=== PATIENT | female | born 1950 | race Caucasian/White ===

== ENCOUNTER 2025-02-14 17:35 | Inpatient (IN) | payer MEDICARE, OTHER ==
[2025-02-14] MEDS ORDERED: Sodium Chloride 0.9% 10 ML Syringe FLUSH PRN (17:57)
[2025-02-14 18:10] LABS: BASOPHILS ABSOLUTE AUTO 0.01 10^3/uL (0.00-0.10); BASOPHILS PERCENT AUTO 0.5 % (0.0-1.0); EOSINOPHILS ABSOLUTE AUTO 0.01 10^3/uL (0.10-0.30); EOSINOPHILS PERCENT AUTO 0.5 % (1.0-3.0); IMMATURE GRAN ABSOLUTE AUTO 0.01 10^3/uL (0.00-0.04); IMMATURE GRAN PERCENT AUTO 0.5 % (0.0-0.4); LYMPHOCYTES ABSOLUTE AUTO 1.18 10^3/uL (1.00-4.00); LYMPHOCYTES PERCENT AUTO 59.0 % (20.0-40.0); MEAN PLATELET VOLUME 8.4 fL (7.4-10.4); MONOCYTES ABSOLUTE AUTO 0.16 10^3/uL (0.10-0.80); MONOCYTES PERCENT AUTO 8.0 % (2.0-8.0); NEUTROPHILS ABSOLUTE AUTO 0.63 10^3/uL (2.50-7.00); NEUTROPHILS PERCENT AUTO 31.5 % (50.0-70.0); PLATELET COUNT,PLT 427 10^3/uL (150-400); RED BLOOD CELL COUNT 3.11 10^6/uL (3.80-5.50); RED CELL DISTRIBUTION WIDTH 13.3 % (11.5-14.5); WHITE BLOOD CELL COUNT,WBC 2.00 10^3/uL (5.00-10.00)
[2025-02-14] MEDS: Lactated Ringers 1,000 ML IV ONE (18:11)
[2025-02-14 18:33] LABS: ALANINE AMINOTRANSFERASE,ALT 24.0 U/L (14-63); ASPARTATE AMNIOTRANSFERASE,AST 17.0 U/L (15-37); BILIRUBIN TOTAL 0.4 mg/dL (0.2-1.0); BLOOD UREA NITROGEN,BUN 6.0 mg/dL (7-18); CARBON DIOXIDE,CO2 28.4 mmol/L (21.0-32.0); CHLORIDE,CL 99.0 mmol/L (98-107); CREATININE 0.57 mg/dL (0.51-1.17); EST CRCL DRUG DOSING (CG) 78.49 mL/min; ESTIMATED GFR 95.0 mL/min (>=60); GLUCOSE RANDOM 185.0 mg/dL (70-140); POTASSIUM,K 4.1 mmol/L (3.5-5.1); PROTEIN TOTAL,TP 6.0 g/dL (6.4-8.2); SODIUM,NA 135.0 mmol/L (136-145)
[2025-02-14 19:37] LABS: APPEARANCE,URINE CLEAR (CLEAR); GLUCOSE,URINE NEGATIVE (NEGATIVE); OCCULT BLOOD,URINE NEGATIVE (NEGATIVE)
[2025-02-14 19:54] LABS: EPITHELIAL CELLS,URINE FEW /LPF
[2025-02-14] MEDS ORDERED: Ondansetron 4 MG/2 ML SDV IV PRN (20:41)
[2025-02-14] MEDS ORDERED: Non-Formulary Medication 1 Each (Insulin Aspart 100 UNIT/ML Insuln.Pen) SQ PRN (20:45)
[2025-02-14] MEDS ORDERED: 50% Dextrose in Water 50 ML Syringe IVPUSH PRN (20:45)
[2025-02-14] MEDS ORDERED: Glucose Gel 15 GM in 37.5 GM Tube PO PRN (20:45)
[2025-02-14] MEDS ORDERED: CAPECITABINE 150 MG PO SCH ×2 (21:00→21:15)
[2025-02-14] MEDS ORDERED: CAPECITABINE 500 MG PO SCH ×2 (21:00→21:15)
[2025-02-14] MEDS: Lactated Ringers 1,000 ML IV SCH (21:30)
[2025-02-14] MEDS: Magnesium Sulfate 2 GM/50 mL 2 GM in Premix Bag 1 BAG IV ONE (21:31)
[2025-02-14] MEDS: CAPECITABINE 500 MG PO SCH (21:31)
[2025-02-14] MEDS: CAPECITABINE 150 MG PO SCH (21:31)
[2025-02-15 07:25] LABS: BASOPHILS ABSOLUTE AUTO 0.00 10^3/uL (0.00-0.10); BASOPHILS PERCENT AUTO 0.0 % (0.0-1.0); EOSINOPHILS ABSOLUTE AUTO 0.02 10^3/uL (0.10-0.30); EOSINOPHILS PERCENT AUTO 0.8 % (1.0-3.0); IMMATURE GRAN ABSOLUTE AUTO 0.00 10^3/uL (0.00-0.04); IMMATURE GRAN PERCENT AUTO 0.0 % (0.0-0.4); LYMPHOCYTES ABSOLUTE AUTO 1.18 10^3/uL (1.00-4.00); LYMPHOCYTES PERCENT AUTO 49.0 % (20.0-40.0); MEAN PLATELET VOLUME 8.2 fL (7.4-10.4); MONOCYTES ABSOLUTE AUTO 0.29 10^3/uL (0.10-0.80); MONOCYTES PERCENT AUTO 12.0 % (2.0-8.0); NEUTROPHILS ABSOLUTE AUTO 0.92 10^3/uL (2.50-7.00); NEUTROPHILS PERCENT AUTO 38.2 % (50.0-70.0); PLATELET COUNT,PLT 370 10^3/uL (150-400); RED BLOOD CELL COUNT 3.11 10^6/uL (3.80-5.50); RED CELL DISTRIBUTION WIDTH 13.6 % (11.5-14.5); WHITE BLOOD CELL COUNT,WBC 2.41 10^3/uL (5.00-10.00)
[2025-02-15 07:43] LABS: BLOOD UREA NITROGEN,BUN 5.0 mg/dL (7-18); CARBON DIOXIDE,CO2 30.4 mmol/L (21.0-32.0); CHLORIDE,CL 106.0 mmol/L (98-107); CREATININE 0.56 mg/dL (0.51-1.17); EST CRCL DRUG DOSING (CG) 79.48 mL/min; GLUCOSE RANDOM 116.0 mg/dL (70-140); POTASSIUM,K 4.9 mmol/L (3.5-5.1); SODIUM,NA 141.0 mmol/L (136-145)
[2025-02-15 07:44] LABS: ESTIMATED GFR 95.0 mL/min (>=60)
[2025-02-15] MEDS: Insulin Lispro 100 Unit/ML 3 ML KwikPen SUBCUT SCH (08:02)
[2025-02-15] MEDS: Insulin Glargine,Human Rec. Analog 100 Units/ML 3 ML Pen SUBCUT SCH (08:05)
[2025-02-15] MEDS: [UNRECOGNIZED DRUG - OTHER] SUBCUT ONE (15:05)
== END 2025-02-15 15:05 | disposition home or self-care (01) | DRG 809 ==
LOC: KA.ED 17:35 → KA.MS 19:00
PROVIDERS: ADMIT Family Medicine; ATTEND Family Medicine
DX: D70.1 Agranulocytosis secondary to cancer chemotherapy (principal); C25.0 Malignant neoplasm of head of pancreas; I10 Essential (primary) hypertension; E11.9 Type 2 diabetes mellitus without complications; E86.0 Dehydration; T45.1X5A Adverse effect of antineoplastic and immunosuppressive drugs, initial encounter; Y92.89 Other specified places as the place of occurrence of the external cause; R19.7 Diarrhea, unspecified; D70.2 Other drug-induced agranulocytosis; Z79.899 Other long term (current) drug therapy; Z79.4 Long term (current) use of insulin
CPT/HCPCS: 36415; 71045; 80048; 80053; 81001; 82947; 83605; 83735; 85025; 87045; 87046; 87324; 87328; 87329; 87449; 99223-GT; 99239-GT; 99284; 99285; A9270-GY; J0692; J1642; J1650; J1815-GY; J3475; J7120; Q3014

== ENCOUNTER 2025-04-10 09:05 | Inpatient (IN) | payer MEDICARE, OTHER ==
[2025-04-10 09:24] LABS: BASOPHILS ABSOLUTE AUTO 0.01 10^3/uL (0.00-0.10); BASOPHILS PERCENT AUTO 0.7 % (0.0-1.0); EOSINOPHILS ABSOLUTE AUTO 0.19 10^3/uL (0.10-0.30); EOSINOPHILS PERCENT AUTO 12.6 % (1.0-3.0); IMMATURE GRAN ABSOLUTE AUTO 0.00 10^3/uL (0.00-0.04); IMMATURE GRAN PERCENT AUTO 0.0 % (0.0-0.4); LYMPHOCYTES ABSOLUTE AUTO 0.47 10^3/uL (1.00-4.00); LYMPHOCYTES PERCENT AUTO 31.1 % (20.0-40.0); MEAN PLATELET VOLUME 9.6 fL (7.4-10.4); MONOCYTES ABSOLUTE AUTO 0.06 10^3/uL (0.10-0.80); MONOCYTES PERCENT AUTO 4.0 % (2.0-8.0); NEUTROPHILS ABSOLUTE AUTO 0.78 10^3/uL (2.50-7.00); NEUTROPHILS PERCENT AUTO 51.6 % (50.0-70.0); PLATELET COUNT,PLT 266 10^3/uL (150-400); RED BLOOD CELL COUNT 2.43 10^6/uL (3.80-5.50); RED CELL DISTRIBUTION WIDTH 23.1 % (11.5-14.5)
[2025-04-10 09:29] LABS: WHITE BLOOD CELL COUNT,WBC 1.51 10^3/uL (5.00-10.00)
[2025-04-10 09:33] LABS: ALANINE AMINOTRANSFERASE,ALT 29.0 U/L (14-63); ASPARTATE AMNIOTRANSFERASE,AST 55.0 U/L (15-37); BILIRUBIN TOTAL 0.9 mg/dL (0.2-1.0); BLOOD UREA NITROGEN,BUN 19.0 mg/dL (7-18); CARBON DIOXIDE,CO2 25.2 mmol/L (21.0-32.0); CHLORIDE,CL 100.0 mmol/L (98-107); CREATININE 0.62 mg/dL (0.51-1.17); EST CRCL DRUG DOSING (CG) 69.61 mL/min; GLUCOSE RANDOM 217.0 mg/dL (70-140); POTASSIUM,K 4.7 mmol/L (3.5-5.1); PROTEIN TOTAL,TP 4.7 g/dL (6.4-8.2); SODIUM,NA 132.0 mmol/L (136-145)
[2025-04-10 09:34] LABS: ESTIMATED GFR 93.0 mL/min (>=60)
[2025-04-10] MEDS: Lactated Ringers 1,000 ML IV SCH (10:42)
[2025-04-10] MEDS ORDERED: 50% Dextrose in Water 50 ML Syringe IVPUSH PRN (12:13)
[2025-04-10] MEDS ORDERED: Glucose Gel 15 GM in 37.5 GM Tube PO PRN (12:13)
[2025-04-10] MEDS ORDERED: Ondansetron 4 MG/2 ML SDV IV PRN (12:13)
[2025-04-10] MEDS: [UNRECOGNIZED DRUG - OTHER] PO SCH ×2 (14:57→17:47)
[2025-04-10] MEDS: Insulin Lispro 100 Unit/ML 3 ML KwikPen SUBCUT SCH (17:47)
[2025-04-10] MEDS ORDERED: [UNRECOGNIZED DRUG - OTHER] PO SCH (18:00)
[2025-04-11 03:26] LABS: LACTIC ACID 0.8 mmol/L (0.4-2.0)
[2025-04-11 07:38] LABS: MEAN PLATELET VOLUME 9.7 fL (7.4-10.4); PLATELET COUNT,PLT 202 10^3/uL (150-400); RED BLOOD CELL COUNT 2.18 10^6/uL (3.80-5.50); RED CELL DISTRIBUTION WIDTH 23.2 % (11.5-14.5)
[2025-04-11 07:46] LABS: WHITE BLOOD CELL COUNT,WBC 1.06 10^3/uL (5.00-10.00)
[2025-04-11 07:49] LABS: LYMPHOCYTES PERCENT MAN 38 % (20-40); SEG NEUTROPHILS PERCENT MAN 61 % (50-70)
[2025-04-11 07:50] LABS: BASOPHILS PERCENT MAN 0 % (0-1); EOSINOPHILS PERCENT MAN 0 % (1-3); MONOCYTES PERCENT MAN 1 % (2-8)
[2025-04-11 07:56] LABS: ALANINE AMINOTRANSFERASE,ALT 35.0 U/L (14-63); ASPARTATE AMNIOTRANSFERASE,AST 43.0 U/L (15-37); BILIRUBIN TOTAL 0.4 mg/dL (0.2-1.0); BLOOD UREA NITROGEN,BUN 20.0 mg/dL (7-18); CARBON DIOXIDE,CO2 23.6 mmol/L (21.0-32.0); CHLORIDE,CL 105.0 mmol/L (98-107); CREATININE 0.67 mg/dL (0.51-1.17); EST CRCL DRUG DOSING (CG) 64.42 mL/min; GLUCOSE RANDOM 216.0 mg/dL (70-140); POTASSIUM,K 5.0 mmol/L (3.5-5.1); PROTEIN TOTAL,TP 4.2 g/dL (6.4-8.2); SODIUM,NA 135.0 mmol/L (136-145)
[2025-04-11] MEDS: Insulin Glargine,Human Rec. Analog 100 Units/ML 3 ML Pen SUBCUT SCH (07:58)
[2025-04-11 08:03] LABS: ESTIMATED GFR 91.0 mL/min (>=60)
[2025-04-11] MEDS: Psyllium Husk Powder Sugar Free 5.85 GM Packet PO SCH (12:22)
[2025-04-11 13:36] LABS: MEAN PLATELET VOLUME 9.4 fL (7.4-10.4); PLATELET COUNT,PLT 232 10^3/uL (150-400); RED BLOOD CELL COUNT 2.44 10^6/uL (3.80-5.50); RED CELL DISTRIBUTION WIDTH 23.0 % (11.5-14.5)
[2025-04-11 14:07] LABS: WHITE BLOOD CELL COUNT,WBC 1.59 10^3/uL (5.00-10.00)
[2025-04-11 14:09] LABS: BASOPHILS PERCENT MAN 0 % (0-1); EOSINOPHILS PERCENT MAN 0 % (1-3); LYMPHOCYTES PERCENT MAN 40 % (20-40); MONOCYTES PERCENT MAN 1 % (2-8); SEG NEUTROPHILS PERCENT MAN 59 % (50-70)
[2025-04-11 14:10] LABS: PLATELET COUNT ESTIMATE ADEQUATE
[2025-04-12 07:31] LABS: ALANINE AMINOTRANSFERASE,ALT 18.0 U/L (14-63); ASPARTATE AMNIOTRANSFERASE,AST 23.0 U/L (15-37); BILIRUBIN TOTAL 0.2 mg/dL (0.2-1.0); BLOOD UREA NITROGEN,BUN 19.0 mg/dL (7-18); CARBON DIOXIDE,CO2 21.0 mmol/L (21.0-32.0); CHLORIDE,CL 108.0 mmol/L (98-107); CREATININE 0.6 mg/dL (0.51-1.17); EST CRCL DRUG DOSING (CG) 74.31 mL/min; GLUCOSE RANDOM 186.0 mg/dL (70-140); POTASSIUM,K 4.2 mmol/L (3.5-5.1); PROTEIN TOTAL,TP 3.9 g/dL (6.4-8.2); SODIUM,NA 135.0 mmol/L (136-145)
[2025-04-12 07:32] LABS: ESTIMATED GFR 94.0 mL/min (>=60)
[2025-04-12 08:02] LABS: MEAN PLATELET VOLUME 9.7 fL (7.4-10.4); PLATELET COUNT,PLT 190 10^3/uL (150-400); RED BLOOD CELL COUNT 2.07 10^6/uL (3.80-5.50); RED CELL DISTRIBUTION WIDTH 23.2 % (11.5-14.5); WHITE BLOOD CELL COUNT,WBC 2.05 10^3/uL (5.00-10.00)
[2025-04-12 08:18] LABS: BASOPHILS PERCENT MAN 0 % (0-1); EOSINOPHILS PERCENT MAN 0 % (1-3); MONOCYTES PERCENT MAN 2 % (2-8); SEG NEUTROPHILS PERCENT MAN 84 % (50-70)
[2025-04-12 08:19] LABS: LYMPHOCYTES PERCENT MAN 14 % (20-40)
[2025-04-12 08:21] LABS: PLATELET COUNT ESTIMATE ADEQUATE
== END 2025-04-12 16:25 | DRG 809 ==
LOC: KA.ED 09:09 → KA.MS 10:37 → OBSVTOIN 11:10 → UNDOADMOB 11:10 → INTOOBSV 11:10 → KA.MS 11:10 → OBSVTOIN 04-11 11:26 → INTOOBSV 04-11 11:26 → OBSVTOIN 04-11 11:27 → UNDODISIN 04-12 16:25
PROVIDERS: ADMIT Internal Medicine; ATTEND Internal Medicine
DX: R42 Dizziness and giddiness (principal); D70.1 Agranulocytosis secondary to cancer chemotherapy; C25.0 Malignant neoplasm of head of pancreas; D84.9 Immunodeficiency, unspecified; R65.10 Systemic inflammatory response syndrome (SIRS) of non-infectious origin without acute organ dysfunction; D61.818 Other pancytopenia; H26.9 Unspecified cataract; R19.7 Diarrhea, unspecified; E11.9 Type 2 diabetes mellitus without complications; E86.0 Dehydration; T45.1X5A Adverse effect of antineoplastic and immunosuppressive drugs, initial encounter; Z92.21 Personal history of antineoplastic chemotherapy; Z98.890 Other specified postprocedural states; Z79.4 Long term (current) use of insulin; Z79.899 Other long term (current) drug therapy; Z98.49 Cataract extraction status, unspecified eye; I10 Essential (primary) hypertension; Z90.410 Acquired total absence of pancreas
CPT/HCPCS: 36415; 80053; 82947; 83605; 83735; 85007; 85025; 85027; 87040; 87045; 87046; 87324; 87449; 87505; 96360; 96361; 96365; 96366; 99223-GT; 99233-GT; 99239-GT; 99284; 99285-25; A9270-GY; G0378; J0692; J1815-GY; J7030; J7040; J7120; Q3014

== ENCOUNTER 2025-04-14 10:15 | Inpatient (IN) | payer MEDICARE, OTHER ==
[2025-04-16] MEDS ORDERED: 50% Dextrose in Water 50 ML Syringe IVPUSH PRN (17:13)
[2025-04-16] MEDS ORDERED: Glucose Gel 15 GM in 37.5 GM Tube PO PRN (17:13)
[2025-04-16] MEDS ORDERED: Ondansetron 4 MG Tab.DIS PO PRN (17:13)
[2025-04-16] MEDS: AMYLASE PO SCH (18:13)
[2025-04-16] MEDS: PROTEASE PO SCH (18:13)
[2025-04-16] MEDS: LIPASE PO SCH (18:13)
[2025-04-16] MEDS: Insulin Lispro 100 Unit/ML 3 ML KwikPen SUBCUT SCH (18:30)
[2025-04-17] MEDS: Potassium Chloride 20 MEQ Tab.ER PO SCH (07:57)
[2025-04-17] MEDS: Insulin Glargine,Human Rec. Analog 100 Units/ML 3 ML Pen SUBCUT SCH (08:04)
[2025-04-17] MEDS: LIPASE PO PRN (10:14)
[2025-04-17] MEDS: AMYLASE PO PRN (10:14)
[2025-04-17] MEDS: PROTEASE PO PRN (10:14)
[2025-04-19] MEDS: Acetaminophen/HYDROcodone 325-5 MG Tab PO ONE (00:23)
[2025-04-20] MEDS: Acetaminophen/HYDROcodone 325-10 MG Tab PO PRN (01:49)
[2025-04-22] MEDS: LIPASE PO PRN (14:57)
[2025-04-22] MEDS: PROTEASE PO PRN (14:57)
[2025-04-22] MEDS: AMYLASE PO PRN (14:57)
[2025-04-22] MEDS: ZINC OXIDE TOP PRN (15:56)
== END 2025-04-24 11:40 | disposition home or self-care (01) | DRG 947 ==
LOC: KA.MS 04-16 16:00 → UNDOADMIN 04-16 16:10 → KA.MS 04-16 16:10
PROVIDERS: ADMIT Family Medicine; ATTEND Family Medicine
DX: R53.1 Weakness (principal); E43 Unspecified severe protein-calorie malnutrition; C25.0 Malignant neoplasm of head of pancreas; D64.9 Anemia, unspecified; D70.1 Agranulocytosis secondary to cancer chemotherapy; T45.1X5A Adverse effect of antineoplastic and immunosuppressive drugs, initial encounter; I10 Essential (primary) hypertension; E11.9 Type 2 diabetes mellitus without complications; Z79.4 Long term (current) use of insulin; Z90.410 Acquired total absence of pancreas; Z79.899 Other long term (current) drug therapy; Z68.21 Body mass index [BMI] 21.0-21.9, adult; Z90.49 Acquired absence of other specified parts of digestive tract; Z98.890 Other specified postprocedural states; Z98.49 Cataract extraction status, unspecified eye
CPT/HCPCS: 82947; 97110-GP; 97116-GP; 97161-GP; 97165-GO; 97535-GO; 99306-GT; 99316-GT; A6212; A9270-GY; J1815-GY; Q3014